=== PATIENT | male | born 1945 | race Caucasian/White ===

== ENCOUNTER 2017-05-24 20:12 | Emergency (ER) | payer BC, MEDICARE ==
[~2017-05-24] VITALS: Ht 177.8 cm; Wt 83.9 kg
[2017-05-24 20:20] VITALS: BP 130/77
== END 2017-05-24 21:48 | disposition home or self-care (01) ==
LOC: ER 20:21
DX: S01.112A Laceration without foreign body of left eyelid and periocular area, initial encounter (principal); Z88.6 Allergy status to analgesic agent; Z88.5 Allergy status to narcotic agent; W25.XXXA Contact with sharp glass, initial encounter; Y93.01 Activity, walking, marching and hiking; Y92.89 Other specified places as the place of occurrence of the external cause; Y99.8 Other external cause status
CPT/HCPCS: A4606; A6402; A6403; Z7610

== ENCOUNTER 2017-05-26 07:24 | Emergency (ER) | payer BC, MEDICARE ==
[~2017-05-26] VITALS: Ht 177.8 cm; Wt 83.9 kg
[2017-05-26 07:24] VITALS: BP 153/104
== END 2017-05-26 07:42 | disposition home or self-care (01) ==
LOC: ER 07:26
DX: S01.112A Laceration without foreign body of left eyelid and periocular area, initial encounter (principal); Z88.6 Allergy status to analgesic agent; Z88.5 Allergy status to narcotic agent; W18.30XA Fall on same level, unspecified, initial encounter; Y93.89 Activity, other specified; Y92.89 Other specified places as the place of occurrence of the external cause; Y99.8 Other external cause status
CPT/HCPCS: A4606; Z7502; Z7610

== ENCOUNTER 2017-05-30 08:29 | Emergency (ER) | payer BC, MEDICARE ==
[~2017-05-30] VITALS: Ht 177.8 cm; Wt 83.9 kg
[2017-05-30 08:34] VITALS: BP 117/73
== END 2017-05-30 08:56 | disposition home or self-care (01) ==
LOC: ER 08:30
DX: S01.112D Laceration without foreign body of left eyelid and periocular area, subsequent encounter (principal); Z88.5 Allergy status to narcotic agent; Z88.6 Allergy status to analgesic agent
CPT/HCPCS: 99281; A4606; Z7610; Z7502